=== PATIENT | female | born 2005 | race African-American/Black ===

== ENCOUNTER 2024-04-17 01:46 | Emergency (ER) | payer SELFPAY ==
[~2024-04-17] VITALS: Ht 160 cm; Wt 55.0 kg
[2024-04-17 01:59] VITALS: TEMP 97.4; O2SAT 100
[2024-04-17 02:46] VITALS: BP 107/43; PULSE 78; RESP 20; O2SAT 96
[2024-04-17] MEDS: SODIUM CHLORIDE 0.9% 1,000 ML IV ONE (03:12)
[2024-04-17] MEDS: ONDANSETRON HCL 4MG/2ML INJ IV STA (03:12)
[2024-04-17 03:37] LABS: CHLORIDE 112 mEq/L (98-107); SODIUM 143 mEq/L (136-145)
[2024-04-17 03:38] LABS: CALCIUM 9.4 mg/dL (8.7-10.4); CARBON DIOXIDE 24 mEq/L (21-32)
[2024-04-17 03:43] LABS: CREATININE 0.8 mg/dL (0.6-1.0); GLUCOSE 121 mg/dL (70-105); UREA NITROGEN BLOOD 9 mg/dL (9-23)
[2024-04-17 03:45] LABS: ACETAMINOPHEN < 2 ug/mL (10-30); ALANINE AMINOTRANSFERASE < 7 IU/L (10-49); ALBUMIN 4.4 g/dL (3.2-4.8); ASPARTATE AMINOTRANSFERASE 22 IU/L (<34); BILIRUBIN DIRECT 0.1 mg/dL (<=3.0); BILIRUBIN TOTAL 0.5 mg/dL (0.1-1.0)
[2024-04-17 03:59] LABS: ETHANOL BLOOD < 10 mg/dL (<10)
[2024-04-17 04:02] LABS: BASOPHILS % 0.2 % (0.0-2.0); EOSINOPHILS % 0.1 % (0.0-5.0); HEMATOCRIT. 36.3 % (36.0-48.0); HEMOGLOBIN. 11.5 g/dL (12.0-16.0); LYMPHOCYTES % 9.1 % (20.0-50.0); MEAN CORPUSCULAR HGB CONC 31.6 g/dL (31.0-37.0); MEAN PLATELET VOLUME 9.8 fl (7.4-10.4); MONOCYTES % 5.1 % (2.0-8.0); NEUTROPHILS % 85.5 % (40.0-76.0); PLATELET 170 x1000/uL (130-400); RED BLOOD CELL COUNT 4.43 mill/uL (4.2-5.4); RED CELL DISTRIBUTION WIDTH 17.3 % (11.6-14.6); WHITE BLOOD COUNT 14.8 x1000/uL (4.5-11.0)
[2024-04-17 05:16] LABS: HCG SCREEN POSITIVE
[2024-04-17] MEDS ORDERED: PREN-135 MT (05:29)
== END 2024-04-17 07:10 | disposition home or self-care (01) ==
LOC: ER 01:46 → EDBD 01:46 → ER 07:10
DX: R11.0 Nausea (principal); T78.1XXA Other adverse food reactions, not elsewhere classified, initial encounter; Z32.01 Encounter for pregnancy test, result positive; Z20.822 Contact with and (suspected) exposure to COVID-19; X58.XXXA Exposure to other specified factors, initial encounter
CPT/HCPCS: 80076; 80048; 80307; 80329; 80320; 84703; 85025; 36415; 96361; 96374; 99283; 87426; J2405; J7030; Z7610 ×3; G0480